=== PATIENT | male | born 1990 | race Caucasian/White ===

== ENCOUNTER 2019-06-11 09:59 | Emergency (ER) | payer BC, OTHER ==
[2019-06-11 10:31] VITALS: BP 156/98
[2019-06-11 10:43] LABS: Influenza A Molecular Negative (Negative); Influenza B Molecular Negative (Negative)
--- NOTE | 2019-06-11 10:49 | UC ---
Abdominal Pain Male HPI - HPI Summary HPI Summary: 28 yo male presents here requesting COVID19 testing Onset PM of 06/08 of fatigue/fever/epigastric and LUQ abd pain N/V x 5 since onset Diarrhea x 10 Tmax <102 THORPE cough no CP or SOB symptoms are resolving no fever in 24 hours - History of Current Complaint Chief Complaint: UCGI Stated Complaint: COUGH,NAUSEA Time Seen by Provider: 06/11/19 10:05 Hx Obtained From: Patient Onset/Duration: Gradual Onset, Lasting Days Timing: Constant Severity Initially: Moderate Severity Currently: Moderate Pain Intensity: 5 Pain Scale Used: 0-10 Numeric Location: Discrete At: LUQ, Epigastric Radiates: No Character: Burning, Cramping Aggravating Factor(s): Food Alleviating Factor(s): Rest Associated Signs And Symptoms: Positive: Fever, Cough, Decreased Appetite, Nausea, Vomiting, Diarrhea. Negative: Diaphoresis, Chest Pain, Dizzy, Back Pain , Constipation, Blood in Stool, Urinary Symptoms, Penile Discharge Male Torso: 1 - pain /tenderness - Allergies/Home Medications Allergies/Adverse Reactions: Allergies Allergy/AdvReac Type Severity Reaction Status Date / Time No Known Allergies Allergy Verified 06/11/19 10:05 Home Medications: Home Medications Ondansetron TAB* [Zofran Tab*] 4 mg PO Q6H PRN #10 tab 06/11/19 [Rx] PMH/Surg Hx/FS Hx/Imm Hx Previously Healthy: Yes Cardiovascular History: Hypertension - not on meds - Surgical History Surgical History: None - Family History Known Family History: Positive: Hypertension Negative: Cardiac Disease, Diabetes - Social History Alcohol Use: None Substance Use Type: None Smoking Status (MU): Heavy Every Day Tobacco Smoker Type: Cigarettes Amount Used/How Often: 1/2 PPD Length of Time of Smoking/Using Tobacco: since 16 y/o Cessation Counseling: Patient Advised to Stop Review of Systems All Other Systems Reviewed And Are Negative: Yes Constitutional: Positive: Fever, Chills, Fatigue Skin: Positive: Negative Eyes: Positive: Negative ENT: Positive: Negative Respiratory: Positive: Cough Gastrointestinal: Positive: Abdominal Pain, Vomiting, Diarrhea, Nausea Genitourinary: Positive: Negative Motor: Positive: Negative Neurovascular: Positive: Negative Musculoskeletal: Positive: Negative Neurological/Mental Status: Positive: Headache Psychological: Positive: Negative Physical Exam Triage Information Reviewed: Yes Appearance: Well-Appearing, No Pain Distress, Well-Nourished, Thin Vital Signs: Initial Vital Signs Temp 98.4 F 06/11/19 10:30 Pulse 98 06/11/19 10:30 Resp 16 06/11/19 10:30 BP 156/98 06/11/19 10:30 Pulse Ox 100 06/11/19 10:30 Vital Signs Reviewed: Yes Eyes: Positive: Conjunctiva Clear ENT: Positive: Hearing grossly normal. Negative: Nasal congestion, Nasal drainage, Tonsillar swelling, Tonsillar exudate, Trismus, Muffled voice, Hoarse voice, Dental tenderness, Sinus tenderness, Uvula midline Dental Exam: Normal Neck: Positive: Supple, Nontender, No Lymphadenopathy Respiratory: Positive: Lungs clear, Normal breath sounds, No respiratory distress, No accessory muscle use Cardiovascular: Positive: RRR, No Murmur Abdomen Description: Positive: No Organomegaly, Soft. Negative: Nontender - epigastric and LUQ tenderness (mild), Bruit, CVA Tenderness (R), CVA Tenderness (L), Distended, Guarding, Hernia @, Hepatomegaly, McBurney's Point Tenderness, Peritoneal Signs, Pulsatile Mass, Splenomegaly Bowel Sounds: Positive: Present Musculoskeletal: Positive: ROM Intact, No Edema Neurological: Positive: Alert Psychological Exam: Normal Skin Exam: Normal Diagnostics - Laboratory Lab Results: influenza (-) Abd Pain Male Course/Dx - Differential Dx/Clinical Impression Provider Diagnosis: Acute gastroenteritis, Educated about COVID-19 virus infection, Elevated BP without diagnosis of hypertension, Smoker Discharge ED - Sign-Out/Discharge Documenting (check all that apply): Patient Departure All imaging exams completed and their final reports reviewed: No Studies - Discharge Plan Condition: Stable Disposition: HOME Prescriptions: Ondansetron TAB* [Zofran Tab*] 4 mg PO Q6H PRN #10 tab PRN Reason: Nausea Patient Education Materials: Gastroenteritis (ED) Forms: COVID-19 Tested & Isolation Referrals: [facility] [Outside] - If Needed (you need to find a PCP to follow your BP suggest recheck in 2-6 mos) Additional Instructions: recheck in 1-2 days if not improved to ER for worsening symptoms - Billing Disposition and Condition Condition: STABLE Disposition: Home
== END 2019-06-11 10:54 | disposition home or self-care (01) ==
LOC: UCCORT 09:59
DX: K52.9 Noninfective gastroenteritis and colitis, unspecified (principal); I10 Essential (primary) hypertension; Z20.828 Contact with and (suspected) exposure to other viral communicable diseases; F17.210 Nicotine dependence, cigarettes, uncomplicated
CPT/HCPCS: 87635; 99202; G0463; U0003